=== PATIENT | male | born 1960 | race Caucasian/White ===

== ENCOUNTER 2019-03-23 18:33 | Emergency (ER) | payer MEDICARE, SELFPAY ==
[2019-03-23 18:55] VITALS: BP 133/94; PULSE 87; RESP 18; TEMP 36.4; O2SAT 91
--- NOTE | 2019-03-23 18:57 | DI.RAD.S_ITS ---
PROCEDURE: XR HAND LT MIN 3V INDICATIONS: Laceration from axe TECHNIQUE: 3 views of the hand(s) acquired. COMPARISON: None. FINDINGS: Bones: Fracture involving the lateral base of the second proximal phalange. Carpal bones are normally aligned. No suspicious bony lesions. Soft tissues: No suspicious soft tissue calcifications. IMPRESSION: Second proximal phalange fracture. Dictated by: Audrey Lujan MD, PhD on 03/23/2019 at 19:28 Approved by: Audrey Lujan MD, PhD on 03/23/2019 at 19:29
--- NOTE | 2019-03-23 19:13 | ED.WOUNDLAC ---
HPI - Wound/Laceration <QUE Rucker - Last Filed: 03/23/19 21:07> General Chief Complaint: Wound/Laceration Stated Complaint: LEFT HAND LACERATION Time Seen by Provider: 03/23/19 18:58 Source: patient Mode of arrival: Ambulatory Limitations: no limitations History of Present Illness HPI narrative: This is a 59-year-old gentleman, smoker, who presents to ED with his son with chief complain of left hand lacerations from an sharp ax while he was chopping baumann for killin. Patient reports he accidentally missed a wood and lacerated his left hand and bounced back and lacerated adjacent area. He has to deep laceration on the dorsal aspect of base of 2nd finger extending to 1st and 2nd digit and the meza aspect on the base of thumb. Superficial laceration on dorsal aspect of proximal of left thumb. Right dominant hand, tetanus immunization was updated 2 months ago when he stepped on a nail. Patient denies history of diabetes. Patient reports no tingling or numbness inferior to the injury site. Patient states he is able to move all his fingers without difficulty but with discomfort. Related Data Home Medications Medication Instructions Recorded Confirmed BACLOFEN (#LIORESAL) 10 mg PO BID #0 12/14/10 BUPROPION HCL (BUDEPRION SR OFF 100 mg PO Q DAY #0 12/14/10 MARKET) GABAPENTIN (Gabapentin) 600 mg PO BID #0 12/14/10 [IMITREX] IJ #0 12/14/10 aripiprazole [Abilify] 15 mg PO Q DAY #0 12/14/10 desmopressin [DDAVP] 0.01 mg NS #0 12/14/10 escitalopram oxalate [Lexapro] 20 mg PO Q DAY #0 12/14/10 levothyroxine 150 mcg PO QDAY@0600 #0 12/14/10 rosuvastatin [Crestor] 10 mg PO QDAY #0 12/14/10 topiramate [Topamax] 100 mg PO BID #0 12/14/10 Previous Rx's Medication Instructions Recorded cyclobenzaprine 10 mg PO Q8HP PRN #20 tab 09/21/16 clindamycin HCl 450 mg PO Q8H 7 Days #63 cap 03/23/19 Allergies Allergy/AdvReac Type Severity Reaction Status Date / Time celecoxib [From CELEBREX] Allergy Unknown Verified 03/23/19 19:03 Penicillins [PENICILLINS] Allergy Unknown Verified 03/23/19 19:03 Sulfa (Sulfonamide Allergy Unknown Verified 03/23/19 19:03 Antibiotics) [SULFA (SULFONAMIDE ANTIBIOTICS)] amoxicillin Allergy Verified 03/23/19 19:03 Review of Systems <QUE Rucker - Last Filed: 03/23/19 21:07> Review of Systems Narrative: General: Denies fever, chills, fatigue, malaise, sweats. HEENT: Denies sinus pain, ear pain, sore throat, difficulty swallowing, dizziness. Respiratory: Denies dyspnea, cough, wheezing, hemoptysis, sputum. Cardiovascular: Denies chest pain, palpitations, orthopnea, edema. Gastrointestinal: Denies nausea, vomiting, abdominal pain, diarrhea, constipation, melena. : Denies dysuria, frequency, incontinence, hematuria, urinary retention. Musculoskeletal: Reports discomfort in left hand from a laceration. Denies weakness, tingling or numbness to fingers in left hand Skin: Deep lacerations in left hand. Neurologic: Denies weakness, headache, numbness, change in speech, confusion, seizures, incoordination. Psychiatric: No concerning psychosocial issues. 12-point review of systems is negative except for those stated above. Patient History <QUE Rucker - Last Filed: 03/23/19 21:07> Medical History Difficulty controlling anger (Acute) Head trauma (Acute) Neck pain (Acute) Surgical History History of neck surgery (Acute) Social History Smoking Status: Current every day smoker tobacco type: cigarettes Substance Use Type: does not use Exam <QUE Rucker - Last Filed: 03/23/19 21:07> Narrative Exam Narrative: General appearance: well developed, well nourished, in no acute distress, appears to slightly sleepy. Head: normocephalic, atraumatic, no scalp lesions, non-tender. Eye: pupil equal, round. EOMI. Nose: nares patent. Oral: mucosa moist. Neck/Thyroid: neck supple, full range of motion, no visible masses. Skin: 3 Lacerations on L hand. 5.5cm deep laceration on dorsal aspect of the proximal phalanx extending to the finger web with a thumb; 2cm Deep laceration on volar aspect of 2nd metacarpal; 1 cm laceration on dorsal aspec of thumb Heart: no clubbing, no cyanosis, no edema. Lungs: Breathing even and unlabored. No stridor. No accessory muscles used. Chest: normal shape and expansion. Abdomen: non-obese, non-distended. Neurologic: alert and oriented. Cognitive exam, ALMOND SORTER and PNS grossly intact on informal exam. Psych: good eye contact, normal affect. Initial Vital Signs Initial Vital Signs: Vital Signs Temperature 97.6 F 03/23/19 18:55 Pulse Rate 87 03/23/19 18:55 Respiratory Rate 18 03/23/19 18:55 Blood Pressure 133/94 H 03/23/19 18:55 Pulse Oximetry 91 03/23/19 18:55 Extrem Left upper extremity: hand Details: abnormal to inspection, neuromotor exam normal Details: thumb opposition normal and fingers 2-5 ABduction normal, neurosensory exam normal, tendon exam normal, vascular exam Details: radial pulse present and normal capillary refill, normal ROM of fingers, swelling, laceration and other (see skin assessment for lacerations); no foreign bodies <Karol Pavon MD - Last Filed: 03/24/19 00:20> Initial Vital Signs Initial Vital Signs: Vital Signs Temperature 97.6 F 03/23/19 18:55 Pulse Rate 87 03/23/19 18:55 Respiratory Rate 18 03/23/19 18:55 Blood Pressure 133/94 H 03/23/19 18:55 Pulse Oximetry 91 03/23/19 18:55 Procedures <QUE Rucker - Last Filed: 03/23/19 21:07> Laceration Repair Laceration 1: Site: hand (2nd proximal phalanx) Side (If applicable): left Size (cm): 5.5 Description: linear Depth: simple, single layer Local Anesthetic: lidocaine 1% and with bicarb Amount of anesthesia used (mL): 4.5 Pre-repair: wound explored and irrigated extensively Skin layer closed with: nylon Size (cm): 4-0 Number of sutures: 9 Laceration 2: Site: hand (volar 2nd metacarpal) Side (If applicable): left Size (cm): 2 Description: linear Depth: simple, single layer Local Anesthetic: lidocaine 1% and with bicarb Amount of anesthesia used (mL): 1.5 Pre-repair: wound explored and irrigated extensively Skin layer closed with: nylon Size (cm): 4-0 Number of sutures: 3 Technique: simple, interrupted Laceration 3: Site: hand (dorsal thumb) Side (If applicable): left Size (cm): 1 Description: linear Depth: simple, single layer Local Anesthetic: lidocaine 1% and with bicarb Amount of anesthesia used (mL): 1 Pre-repair: wound explored and irrigated extensively Skin layer closed with: nylon Size (cm): 4-0 Number of sutures: 2 Technique: simple, interrupted Orthopedic Splinting/Casting Injury #1: Side: left Upper Extremity Injury Location: finger Upper Extremity Immobilizer: sling/shoulder immobilizer and aluminum form splint Post splinting neuro exam: intact Post splinting vascular exam: intact Placed by: Nursing Scores <QUE Rucker - Last Filed: 03/23/19 21:07> GCS Win coma scale eye opening: Spontaneous [place] coma scale verbal response: Orientated Win coma scale motor response: Obey commands [place] coma scale total score: 15 Course <ELZBIETA RuckerP - Last Filed: 03/23/19 21:07> Orders Ordered: ED Orders 03/23/19 18:57 XR hand LT min 3V Stat Discontinued Medications Bacitracin (Bacitracin) 2 applic TOP NOW ONE Stop: 03/23/19 19:18 Last Admin: 03/23/19 19:22 Dose: 2 applic Documented by: SARY Clindamycin HCl (Cleocin) 450 mg PO NOW ONE Stop: 03/23/19 20:19 Last Admin: 03/23/19 20:32 Dose: 450 mg Documented by: VILMA Lidocaine/Sodium Bicarbonate (Buffered Lidocaine 10 Ml Syr) 20 ml INJ NOW ONE Stop: 03/23/19 19:18 Last Admin: 03/23/19 19:22 Dose: 20 ml Documented by: SARY Vital Signs Vital signs: Vital Signs - 8 hr 03/23/19 18:55 03/23/19 20:30 Temperature 97.6 F Pulse Rate 87 79 Respiratory Rate 18 18 Blood Pressure 133/94 H Blood Pressure [Right Arm] 136/79 Pulse Oximetry 91 99 <Karol Pavon MD - Last Filed: 03/24/19 00:20> Orders Ordered: ED Orders 03/23/19 18:57 XR hand LT min 3V Stat Discontinued Medications Bacitracin (Bacitracin) 2 applic TOP NOW ONE Stop: 03/23/19 19:18 Last Admin: 03/23/19 19:22 Dose: 2 applic Documented by: SARY Clindamycin HCl (Cleocin) 450 mg PO NOW ONE Stop: 03/23/19 20:19 Last Admin: 03/23/19 20:32 Dose: 450 mg Documented by: VILMA Lidocaine/Sodium Bicarbonate (Buffered Lidocaine 10 Ml Syr) 20 ml INJ NOW ONE Stop: 03/23/19 19:18 Last Admin: 03/23/19 19:22 Dose: 20 ml Documented by: SARY Vital Signs Vital signs: Vital Signs - 8 hr 03/23/19 18:55 03/23/19 20:30 Temperature 97.6 F Pulse Rate 87 79 Respiratory Rate 18 18 Blood Pressure 133/94 H Blood Pressure [Right Arm] 136/79 Pulse Oximetry 91 99 MDM - Wound/Laceration <QUE Rucker - Last Filed: 03/23/19 21:07> Differential Diagnosis Differential diagnosis: Likely laceration and other (Fracture, tendon/ligament injury) Medical Records Attestation: I reviewed the patient's medical records. Imaging Data XR-Hand LT: Radiologist's impression: [address] [address] XRay Report Signed Patient: Musa Lee [facility]#: [id number] : 2Acct:[id number] Age/Sex: 59 / MDate of Service: 03/23/19 Loc: ED Accession Number: [id number] Procedure: XR hand LT min 3V Ordering Provider: Karol Pavon MD PROCEDURE: XR HAND LT MIN 3V INDICATIONS: Laceration from axe TECHNIQUE: 3 views of the hand(s) acquired. COMPARISON: None. FINDINGS: Bones: Fracture involving the lateral base of the second proximal phalange. Carpal bones are normally aligned. No suspicious bony lesions. Soft tissues: No suspicious soft tissue calcifications. IMPRESSION: Second proximal phalange fracture. Dictated by: Audrey Lujan MD, PhD on 03/23/2019 at 19:28 Approved by: Audrey Lujan MD, PhD on 03/23/2019 at 19:29 [facility] Narrative Medical decision making narrative: This is a 59 year old male who presents to ED with 2 deep lacerations and 1 superficial lacerations on left dorsal and volar aspects of proximal and metacarpal of 1st and 2nd digit from an sharp ax accidentally while he was chopping baumann. X-ray showed 2nd proximal phalanx she fracture. Tetanus immunization was updated 2 months ago. Suture has in placed and patient tolerated well. Please see procedure notes. Patient has allergies to amoxicillin and penicillin. Patient was medicated with 1st dose of clindamycin prior discharged to home which patient had taken before without problems. Seven day course antibiotic medication has been prescribed. Wound was dressed by nursing staff and along finger splint has applied on base of 2nd finger. Return precautions were discussed with the patient and a referral to [facility] orthopedist has been provided to follow up. Patient advised to follow up with his PCP for wound recheck and suture removal. Patient verbalized understanding and agrees with treatment plan. Discharge Plan Departure Patient Disposition: Home Clinical Impression: Hand laceration Qualifiers: Encounter type: initial encounter Foreign body presence: without foreign body Laterality: left Qualified Code(s): S61.412A - Laceration without foreign body of left hand, initial encounter Fracture, finger, open Qualifiers: Encounter type: initial encounter Finger: index finger Phalanx: proximal Fracture alignment: nondisplaced Laterality: left Qualified Code(s): S62.641B - Nondisplaced fracture of proximal phalanx of left index finger, initial encounter for open fracture Discharge Date/Time: 03/23/19 20:34 Instructions: DI for Laceration Repair, DI for Open Fracture Activity Restrictions/Additional Instructions: You have been diagnosed with [open fracture on your base of 2nd finger on top of left hand with lacerations]. What to do: *Take your medications as directed. You can take [id number] Tylenol and or Motrin as needed and take care pain medications for severe pain. Please do not get your wound soaked in the water until suture removal. Keep your dressing intact for next 24 hrs. After then, you could remove your dressing, wash with soap and water. Pat dry with clean paper towel and dress it with antibiotic ointment. You can change dressing as needed and daily. Please monitor for signs and symptoms for infection such as increasing redness, swelling, warmth, pain, fever, purulent discharge. If this occurs, please return to ED or follow up with your primary care physician since your wound may be gotten infected. Please follow up with your primary care provider in 2-3 days for recheck wound. Please follow up with [facility] orthopedist for the open finger fracture. I added contact information with this discharge instruction. Your suture should be removed [7] days. This can be done by your primary provider, walk-in clinic or here in ED. Please keep your wound clean, dry and intact all times. Prescriptions: New clindamycin HCl 150 mg capsule 450 mg PO Q8H 7 Days Qty: 63 RF: 0 No Action escitalopram oxalate [Lexapro] 20 MG tablet 20 mg PO Q DAY Qty: 0 RF: 0 aripiprazole [Abilify] 15 MG tablet 15 mg PO Q DAY Qty: 0 RF: 0 rosuvastatin [Crestor] 10 MG tablet 10 mg PO QDAY Qty: 0 RF: 0 BUPROPION HCL (BUDEPRION SR OFF MARKET) 100 mg PO Q DAY Qty: 0 RF: 0 levothyroxine 150 MCG tablet 150 mcg PO QDAY@0600 Qty: 0 RF: 0 topiramate [Topamax] 100 MG tablet 100 mg PO BID Qty: 0 RF: 0 GABAPENTIN (Gabapentin) 600 mg PO BID Qty: 0 RF: 0 BACLOFEN (#LIORESAL) 10 mg PO BID Qty: 0 RF: 0 [IMITREX] IJ Qty: 0 RF: 0 desmopressin [DDAVP] 0.01 % aerosol,spray 0.01 mg NS Qty: 0 RF: 0 cyclobenzaprine 10 MG tablet 10 mg PO Q8HP PRNQty: 20 RF: 0 Referrals: [facility] [Provider Group] Tyshawn Grande MD [Primary Care Provider] -
[2019-03-23] MEDS: LIDO 1%/SOD BICARB 8.4% (10ML) 10 ML SYRINGE 20 ML INJ (19:22)
[2019-03-23] MEDS: BACITRACIN OINT 0.9 GM PCKT 2 APPLIC TOP (19:22)
[2019-03-23 20:30] VITALS: BP 136/79; PULSE 79; RESP 18; O2SAT 99
[2019-03-23] MEDS: CLINDAMYCIN 150 MG CAPSULE 450 MG PO (20:32)
== END 2019-03-23 20:34 | disposition home or self-care (01) ==
PROVIDERS: Emergency Provider Nurse Practitioner Family; PCP Family Medicine
DX: S62.641B Nondisplaced fracture of proximal phalanx of left index finger, initial encounter for open fracture (principal); W27.8XXA Contact with other nonpowered hand tool, initial encounter
CPT/HCPCS: 12004; 29130; 73130; 99283

== ENCOUNTER → 2021-02-16 12:41 | Outpatient (CLI) | payer MEDICARE, SELFPAY ==
[2021-02-16 20:33] LABS: COVID19 - ORCAS (NP or Nasal) Negative (Negative)
== END ==
PROVIDERS: PCP Physician Assistant Medical; Visit Provider Physician Assistant Medical
DX: Z20.822 Contact with and (suspected) exposure to COVID-19 (principal)
CPT/HCPCS: U0003

== ENCOUNTER → 2021-02-17 11:57 | Outpatient (CLI) | payer MEDICARE, SELFPAY ==
[2021-02-19 13:19] LABS: SARS CoV19 IgG Positive (Negative); SARS-CoV19- IgM Positive (Negative)
== END ==
PROVIDERS: PCP Physician Assistant Medical; Visit Provider Physician Assistant Medical
DX: R06.00 Dyspnea, unspecified (principal)
CPT/HCPCS: 86769

== ENCOUNTER → 2021-04-28 11:40 | Outpatient (CLI) | payer MEDICARE, MEDICAID, SELFPAY ==
--- NOTE | 2021-04-28 11:57 | DI.CT.S_ITS ---
PROCEDURE: CT CHEST W CON INDICATIONS: nodule found on xray 02/16/21 TECHNIQUE: After the administration of intravenous contrast, 5 mm thick sections acquired from the pulmonary apices to the posterior costophrenic angles. 1 mm axial lung, 5 mm thick coronal and sagittal reformats and 7 mm axial MIP were acquired. For radiation dose reduction, the following was used: automated exposure control, adjustment of mA and/or kV according to patient size. COMPARISON: [facility] ([place]), CR, XR CHEST 2V, 02/16/2021, 10:10. FINDINGS: Lungs: Scattered scarring/atelectasis. There is ill-defined consolidative opacity measuring 1.9 x 1.1 cm adjacent to the aortic arch in the medial left lower lobe which is technically indeterminate. This could represent scarring or inflammatory change however cannot exclude neoplasm. Additional areas of peripheral subpleural ground-glass and reticular opacities noted in both lung bases which appear less conspicuous since the prior radiograph. Airway thickening in keeping with nonspecific bronchitis and/or reactive airways disease. Pleura: No pleural effusion or pneumothorax. Thyroid gland: Negative Chest nodes: Normal. Heart: Normal in size. No pericardial effusion. Aorta: Normal in size. Pulmonary arteries: Normal. Esophagus: Normal. Upper abdomen and chest wall: Hepatic steatosis Bones: No compression fracture. Diffuse spondylitic changes and facet arthropathy. Cervical spine fixation hardware. IMPRESSION: Ill-defined patchy consolidative focal opacity in the left paramediastinal region, technically indeterminate. Please see discussion above. Cannot exclude neoplasm. Further evaluation could be performed with PET-CT or continued surveillance with three-month interval CT chest. Additional patchy and ground-glass opacities in both lung bases. Resolving pneumonia could have this appearance. These likely correlate to the radiographic appearance from the prior study dated 02/16/21 and demonstrates interval decrease. Dictated by: Howie Peck M.D. on 04/28/2021 at 13:37 Approved by: Howie Peck M.D. on 04/28/2021 at 13:54
== END ==
PROVIDERS: PCP Physician Assistant Medical; Referring Provider Physician Assistant Medical; Visit Provider Physician Assistant Medical
DX: R91.1 Solitary pulmonary nodule (principal); R06.00 Dyspnea, unspecified
CPT/HCPCS: 71260

== ENCOUNTER → 2021-05-03 10:25 | Outpatient (CLI) | payer MEDICARE, SELFPAY | PROVIDERS: PCP Physician Assistant Medical; Referring Provider Physician Assistant Medical; Visit Provider Physician Assistant Medical | DX: G89.21 Chronic pain due to trauma (principal); G89.29 Other chronic pain; M54.41 Lumbago with sciatica, right side; Z79.891 Long term (current) use of opiate analgesic | CPT/HCPCS: 83013 ==

== ENCOUNTER → 2021-06-29 11:00 | Outpatient (CLI) | payer MEDICARE, SELFPAY ==
--- NOTE | 2021-06-29 11:01 | DI.MRI.S_ITS ---
PROCEDURE: MR LUMBAR SPINE WO CON INDICATIONS: chronic lumbar pain TECHNIQUE: Noncontrast sagittal T1 spin echo and T2 fast echo, sagittal STIR, axial T1 and T2 fast spin echo through the lumbar spine. In cases with scoliosis, additional coronal T2 fast spin echo may be performed. COMPARISON: Outside Facility, RG, MRI L-SPINE W/O CONTRAST, 10/13/2016, 16:04. [facility] ([place]), CR, XR LUMBAR SPINE 2-3V, 10/20/2020, 11:06. FINDINGS: Image quality: Excellent. Alignment and Curvature: 5 lumbar type vertebral bodies are present by plain film. There is loss of normal lumbar lordosis. There is mild grade 1 retrolisthesis of L1 on L2, L2 on L3, L3 on L4, and L4 on L5. Bone Marrow: Marrow is of normal overall signal. No acute vertebral body compression fractures. Left-sided interbody fusion hardware at L3-L4 is present. There is moderate reactive signal within the endplates adjacent to the L2-L3 intervertebral disc. Mild reactive signal within the endplates adjacent to the remaining lumbar and lower thoracic intervertebral discs. Spinal Cord: Conus medullaris terminates at the mid L1 level. Visualized cord demonstrates normal signal and size. Paraspinous Soft Tissues: No paravertebral masses. T12-L1: Mild disc height loss and desiccation. Mild diffuse disc bulge. Mild facet and ligamentum flavum hypertrophy. Mild epidural lipomatosis. Mild canal stenosis. Mild bilateral foraminal stenosis. No significant change. L1-L2: Mild disc height loss and desiccation. Mild diffuse disc bulge. Mild facet and ligamentum flavum hypertrophy. Mild epidural lipomatosis. Mild canal stenosis. Mild bilateral foraminal stenosis. No significant change. L2-L3: Moderate disc height loss and desiccation. Interbody device placement. Mild diffuse disc bulge. Mild facet and ligamentum flavum hypertrophy. Mild canal stenosis. Mild bilateral foraminal stenosis. L3-L4: Left lateral fusion hardware. Moderate disc height loss and desiccation. Mild diffuse disc bulge/osteophyte. Mild epidural lipomatosis. Mild facet and ligamentum flavum hypertrophy. Mild canal stenosis. Moderate bilateral foraminal stenosis. No significant change. L4-L5: Moderate disc height loss and desiccation. Mild diffuse disc bulge/osteophyte. Mild facet and ligamentum flavum hypertrophy. Mild epidural lipomatosis. Increased, severe canal stenosis. Severe left greater than right foraminal stenosis is present, as before. Bilateral L4 nerve root compression. L5-S1: Mild disc height loss and desiccation. Mild diffuse disc bulge. Mild bilateral facet hypertrophy. Mild canal stenosis. Mild bilateral foraminal stenosis. No significant change. IMPRESSION: 1. Postsurgical sequelae. 2. Multilevel degenerative disc and facet disease, as well as ligamentum flavum hypertrophy and epidural lipomatosis. 3. Multilevel canal stenoses, worst at L4-L5 where there is severe canal stenosis. 4. Multilevel foraminal stenoses, worst at L4-L5 where there is associated intraforaminal nerve root compression. Recommend correlation with clinical symptoms to ascertain relevance of this finding. Dictated by: Mick Morton M.D. on 06/29/2021 at 13:39 Approved by: Mick Morton M.D. on 06/29/2021 at 13:43
== END ==
PROVIDERS: PCP Physician Assistant Medical; Referring Provider Physician Assistant Medical; Visit Provider Physician Assistant Medical
DX: M51.16 Intervertebral disc disorders with radiculopathy, lumbar region (principal); M51.17 Intervertebral disc disorders with radiculopathy, lumbosacral region; M48.061 Spinal stenosis, lumbar region without neurogenic claudication; M48.07 Spinal stenosis, lumbosacral region; G89.29 Other chronic pain
CPT/HCPCS: 72148

== ENCOUNTER → 2021-07-05 10:51 | Outpatient (CLI) | payer MEDICARE, SELFPAY ==
[2021-07-05 18:43] LABS: Add Manual Diff / Slide Review NO; Basophils Absolute Auto 100 /uL (0-100); Basophils Percent Auto 0.9 % (0-2); Eosinophils Absolute Auto 200 /uL (0-450); Hematocrit 44.6 % (41-53); Hemoglobin 15.2 g/dL (13.5-17.5); Lymphocytes Absolute Auto 1600 /uL (1100-4500); Lymphocytes Percent Auto 20.2 % (25-40); Mean Corpuscular Hemoglobin 31.2 PG (26-34); Monocytes Absolute Auto 500 /uL (0-900); Monocytes Percent Auto 6.2 % (3-14); Neutrophils Absolute Auto 5600 /uL (1500-7000); Neutrophils Percent Auto 69.7 % (50-75); Platelet Count 293 X10^3/uL (150-400); Red Blood Cell Count 4.85 X10^6/uL (4.5-5.9); Red Cell Distribution Width 13.5 % (11.6-14.8); White Blood Cell Count 8.1 X10^3/uL (4.5-11.0)
[2021-07-05 19:10] LABS: Alanine Aminotransferase 28 IU/L (<50); Albumin 3.9 g/dL (3.5-5.0); Albumin Globulin Ratio 1.4 (1.0-2.8); Alkaline Phosphatase 93 U/L (38-126); Aspartate Aminotransferase 24 IU/L (17-59); BUN Creatinine Ratio 9.1 (6-22); Bilirubin Total 0.5 mg/dL (0.2-1.3); Blood Urea Nitrogen 7 mg/dL (9-20); Calcium 9.4 mg/dL (8.4-10.2); Carbon Dioxide 36 mmol/L (22-32); Chloride 99 mmol/L (98-107); Cholesterol 221 mg/dL (140-199); Estimated Glomerular Filt Rate > 60.0 mL/min (>60); Globulin 2.8 g/dL (1.7-4.1); Glucose 120 mg/dL (70-100); HDL Cholesterol 41 mg/dL (40-60); HEMOLYSIS 19 (0-50); LDL Cholesterol Calculated 159 mg/dL (<100); Potassium 4.8 mmol/L (3.4-5.1); Sodium 138 mmol/L (137-145); Total Protein 6.7 g/dL (6.3-8.2); Triglycerides 104 mg/dL (35-150)
[2021-07-05 19:27] LABS: Free T3, Triiodothyronine Free 4.86 pg/mL (2.77-5.27)
[2021-07-05 19:41] LABS: TSH w/ Reflex to FT4 0.29 uIU/mL (0.47-4.68)
[2021-07-05 20:54] LABS: Free T4, Direct Thyroxine 1.11 ng/dL (0.78-2.19)
== END ==
PROVIDERS: PCP Physician Assistant Medical; Visit Provider Physician Assistant Medical
DX: R07.9 Chest pain, unspecified (principal); Z79.891 Long term (current) use of opiate analgesic; M54.40 Lumbago with sciatica, unspecified side; R91.1 Solitary pulmonary nodule; R91.8 Other nonspecific abnormal finding of lung field; G89.29 Other chronic pain
CPT/HCPCS: 80053; 80061; 84439; 84443; 84481; 85025

== ENCOUNTER → 2021-07-13 10:16 | Outpatient (CLI) | payer MEDICARE, SELFPAY ==
[2021-07-13 18:41] LABS: Hemoglobin A1C% w Est Avg Glu 5.9 % (4.0-6.0)
== END ==
PROVIDERS: PCP Physician Assistant Medical; Visit Provider Physician Assistant Medical
DX: R73.9 Hyperglycemia, unspecified (principal)
CPT/HCPCS: 83036

== ENCOUNTER → 2021-11-07 08:03 | Outpatient (CLI) | payer MEDICARE, MEDICAID, SELFPAY ==
[2021-11-07 19:52] LABS: Alanine Aminotransferase 16 IU/L (<50); Albumin 4.1 g/dL (3.5-5.0); Albumin Globulin Ratio 1.6 (1.0-2.8); Alkaline Phosphatase 78 U/L (38-126); Aspartate Aminotransferase 20 IU/L (17-59); BUN Creatinine Ratio 7.6 (6-22); Bilirubin Total 0.3 mg/dL (0.2-1.3); Blood Urea Nitrogen 7 mg/dL (9-20); Calcium 8.8 mg/dL (8.4-10.2); Carbon Dioxide 34 mmol/L (22-32); Chloride 100 mmol/L (98-107); Cholesterol 149 mg/dL (140-199); Estimated Glomerular Filt Rate > 60 mL/min (>60); Globulin 2.6 g/dL (1.7-4.1); Glucose 106 mg/dL (70-100); HDL Cholesterol 40 mg/dL (40-60); HEMOLYSIS < 15 (0-50); LDL Cholesterol Calculated 77 mg/dL (<100); Potassium 4.4 mmol/L (3.4-5.1); Sodium 137 mmol/L (137-145); Total Protein 6.7 g/dL (6.3-8.2); Triglycerides 159 mg/dL (35-150)
[2021-11-07 20:18] LABS: Free T3, Triiodothyronine Free 3.92 pg/mL (2.77-5.27)
[2021-11-07 20:32] LABS: TSH w/ Reflex to FT4 1.99 uIU/mL (0.47-4.68)
== END ==
PROVIDERS: PCP Physician Assistant Medical; Visit Provider Physician Assistant Medical
DX: R07.9 Chest pain, unspecified (principal); Z79.891 Long term (current) use of opiate analgesic; E78.00 Pure hypercholesterolemia, unspecified; I10 Essential (primary) hypertension; R73.9 Hyperglycemia, unspecified
CPT/HCPCS: 80053; 80061; 84443; 84481

== ENCOUNTER → 2022-03-14 11:21 | Outpatient (CLI) | payer MEDICARE, MEDICAID, SELFPAY ==
[2022-03-14 19:49] LABS: Add Manual Diff / Slide Review NO; Basophils Absolute Auto 100 /uL (0-100); Basophils Percent Auto 0.9 % (0-2); Eosinophils Absolute Auto 100 /uL (0-450); Eosinophils Percent Auto 1.6 % (2-4); Hematocrit 42.4 % (41-53); Hemoglobin 14.3 g/dL (13.5-17.5); Lymphocytes Absolute Auto 1600 /uL (1100-4500); Mean Corpuscular HGB Conc 33.8 % (30-36); Mean Corpuscular Hemoglobin 31.4 PG (26-34); Mean Corpuscular Volume 92.9 fL (80-100); Monocytes Absolute Auto 700 /uL (0-900); Monocytes Percent Auto 7.5 % (3-14); Neutrophils Absolute Auto 6400 /uL (1500-7000); Platelet Count 234 X10^3/uL (150-400); Red Blood Cell Count 4.56 X10^6/uL (4.5-5.9); Red Cell Distribution Width 14.4 % (11.6-14.8); White Blood Cell Count 8.9 X10^3/uL (4.5-11.0)
[2022-03-14 20:01] LABS: Alanine Aminotransferase 60 IU/L (<50); Albumin 3.9 g/dL (3.5-5.0); Albumin Globulin Ratio 1.6 (1.0-2.8); Alkaline Phosphatase 140 U/L (38-126); Aspartate Aminotransferase 24 IU/L (17-59); BUN Creatinine Ratio 7.9 (6-22); Bilirubin Total 0.3 mg/dL (0.2-1.3); Blood Urea Nitrogen 6 mg/dL (9-20); Calcium 8.8 mg/dL (8.4-10.2); Carbon Dioxide 32 mmol/L (22-32); Chloride 100 mmol/L (98-107); Cholesterol 137 mg/dL (140-199); Estimated Glomerular Filt Rate > 60 mL/min (>60); Globulin 2.5 g/dL (1.7-4.1); Glucose 120 mg/dL (70-100); HDL Cholesterol 42 mg/dL (40-60); HEMOLYSIS < 15 (0-50); Hemoglobin A1C% w Est Avg Glu 5.7 % (4.0-6.0); LDL Cholesterol Calculated 72 mg/dL (<100); Potassium 4.5 mmol/L (3.4-5.1); Sodium 137 mmol/L (137-145); Total Protein 6.4 g/dL (6.3-8.2); Triglycerides 116 mg/dL (35-150)
[2022-03-14 20:24] LABS: TSH w/ Reflex to FT4 0.46 uIU/mL (0.47-4.68)
[2022-03-14 20:59] LABS: Free T4, Direct Thyroxine 1.04 ng/dL (0.78-2.19)
== END ==
PROVIDERS: PCP Physician Assistant Medical; Visit Provider Physician Assistant Medical
DX: Z79.891 Long term (current) use of opiate analgesic (principal); M54.40 Lumbago with sciatica, unspecified side; R07.9 Chest pain, unspecified; E78.00 Pure hypercholesterolemia, unspecified; I10 Essential (primary) hypertension; R03.0 Elevated blood-pressure reading, without diagnosis of hypertension; R73.9 Hyperglycemia, unspecified; G89.29 Other chronic pain
CPT/HCPCS: 80053; 80061; 83036; 84439; 84443; 85025

== ENCOUNTER → 2022-07-02 12:22 | Outpatient (CLI) | payer MEDICARE, MEDICAID, SELFPAY ==
--- NOTE | 2022-07-02 12:24 | DI.MRI.S_ITS ---
PROCEDURE: MR LUMBAR SPINE WO CON INDICATIONS: increasing sciatica TECHNIQUE: Noncontrast sagittal T1 spin echo and T2 fast echo, sagittal STIR, and T2 fast spin echo through the lumbar spine. In cases with scoliosis, additional coronal T2 fast spin echo may be performed. COMPARISON: [facility], MR, MR LUMBAR SPINE WO CON, 06/29/2021, 11:07. FINDINGS: Image quality: Excellent. Alignment and Curvature: Minimal retrolisthesis of L1 on L2, L2 on L3, L3 on L4 and L4 on L5. Interbody fusion hardware is present at L3-4, unchanged. Bone Marrow: Marrow is of normal overall signal. No acute vertebral body compression fractures. Spinal Cord: Conus medullaris terminates at the L1 level. Visualized cord demonstrates normal signal and size. Paraspinous Soft Tissues: No paravertebral masses. Discs: Ujxj-ho-gijvfegy desiccation is present. L1-L2: Mild disc bulge with mild spinal stenosis. Mild bilateral foraminal narrowing, left greater than right with facet and ligamentum flavum hypertrophy. Epidural lipomatosis is present. No interval change. L2-L3: Mild disc bulge with mild spinal stenosis. Mild bilateral foraminal narrowing with facet and ligamentum flavum hypertrophy. No interval change. L3-L4: Mild disc bulge with moderate spinal stenosis, slightly progressive compared to prior exam. Moderate bilateral foraminal narrowing with facet and ligamentum flavum hypertrophy. Minimal epidural lipomatosis. L4-L5: Mild disc bulge with severe spinal stenosis. Severe bilateral foraminal narrowing, left greater than right with slight compression of the exiting L4 nerve roots bilaterally, left greater than right. No interval change. Facet and ligamentum flavum hypertrophy are present. L5-S1: Mild disc bulge with mild spinal stenosis. Mild bilateral foraminal narrowing with facet and ligamentum flavum hypertrophy. No interval change. IMPRESSION: Stable appearance of postsurgical change. Stable multilevel spinal stenosis remaining most severe at L4-5 secondary to disc bulge with contributing effect of facet/ligamentum flavum arthropathy as well as epidural lipomatosis. Multilevel foraminal narrowing remaining most severe at L4-5 secondary to facet and ligamentum flavum arthropathy. Dictated by: Neelam Dailey M.D. on 07/02/2022 at 15:40 Approved by: Neelam Dailey M.D. on 07/02/2022 at 15:47
== END ==
PROVIDERS: PCP Physician Assistant Medical; Referring Provider Physician Assistant Medical; Visit Provider Physician Assistant Medical
DX: M48.061 Spinal stenosis, lumbar region without neurogenic claudication (principal); M51.16 Intervertebral disc disorders with radiculopathy, lumbar region; M47.26 Other spondylosis with radiculopathy, lumbar region; G89.29 Other chronic pain
CPT/HCPCS: 72148

== ENCOUNTER → 2022-09-12 10:12 | Outpatient (CLI) | payer MEDICARE, MEDICAID, SELFPAY ==
[2022-09-12 19:32] LABS: Add Manual Diff / Slide Review NO; Basophils Absolute Auto 0 /uL (0-100); Basophils Percent Auto 0.5 % (0-2); Eosinophils Absolute Auto 100 /uL (0-450); Eosinophils Percent Auto 1.3 % (2-4); Hematocrit 44.1 % (41-53); Hemoglobin 15.1 g/dL (13.5-17.5); Lymphocytes Absolute Auto 1800 /uL (1100-4500); Lymphocytes Percent Auto 20.6 % (25-40); Mean Corpuscular HGB Conc 34.4 % (30-36); Mean Corpuscular Hemoglobin 31.7 PG (26-34); Mean Corpuscular Volume 92.2 fL (80-100); Monocytes Absolute Auto 600 /uL (0-900); Monocytes Percent Auto 6.7 % (3-14); Neutrophils Absolute Auto 6300 /uL (1500-7000); Neutrophils Percent Auto 70.9 % (50-75); Platelet Count 265 X10^3/uL (150-400); Red Blood Cell Count 4.78 X10^6/uL (4.5-5.9); Red Cell Distribution Width 13.4 % (11.6-14.8); White Blood Cell Count 8.8 X10^3/uL (4.5-11.0)
[2022-09-12 19:39] LABS: Alanine Aminotransferase 19 IU/L (<50); Albumin Globulin Ratio 1.5 (1.0-2.8); Alkaline Phosphatase 76 U/L (38-126); Aspartate Aminotransferase 19 IU/L (17-59); BUN Creatinine Ratio 9.3 (6-22); Bilirubin Total 0.4 mg/dL (0.2-1.3); Blood Urea Nitrogen 7 mg/dL (9-20); C-Reactive Protein Quant 1.1 mg/dL (<1.0); Calcium 8.9 mg/dL (8.4-10.2); Carbon Dioxide 33 mmol/L (22-32); Chloride 100 mmol/L (98-107); Estimated Glomerular Filt Rate > 60 mL/min (>60); Globulin 2.6 g/dL (1.7-4.1); Glucose 107 mg/dL (80-110); HEMOLYSIS < 15 (0-50); Potassium 4.1 mmol/L (3.4-5.1); Sodium 137 mmol/L (137-145); Total Protein 6.6 g/dL (6.3-8.2)
[2022-09-12 19:40] LABS: Rheumatoid Factor < 8.6 IU/mL (<12.0)
[2022-09-12 19:53] LABS: Erythrocyte Sedimentation Rate 6 MM/HR (0-15)
[2022-09-12 20:08] LABS: TSH w/ Reflex to FT4 0.74 uIU/mL (0.47-4.68)
[2022-09-18 18:24] LABS: ANA Screen, IFA Negative (.)
== END ==
PROVIDERS: PCP Physician Assistant Medical; Visit Provider Physician Assistant Medical
DX: Z79.891 Long term (current) use of opiate analgesic (principal); M54.40 Lumbago with sciatica, unspecified side; M25.50 Pain in unspecified joint; R91.1 Solitary pulmonary nodule; R73.9 Hyperglycemia, unspecified; M54.2 Cervicalgia; F17.200 Nicotine dependence, unspecified, uncomplicated
CPT/HCPCS: 80053; 84443; 85025; 85651; 86038; 86140; 86430

== ENCOUNTER → 2023-01-29 11:56 | Outpatient (CLI) | payer MEDICARE, MEDICAID, SELFPAY ==
--- NOTE | 2023-01-29 12:14 | DI.CT.S_ITS ---
PROCEDURE: CT CHEST WO CON INDICATIONS: follow up 2020 TECHNIQUE: Noncontrast 5 mm thick sections acquired from the pulmonary apices to the posterior costophrenic angles. 1 mm lung window, 5 mm thick coronal and sagittal and 7 mm axial MIP reformats were then acquired. For radiation dose reduction, the following was used: automated exposure control, adjustment of mA and/or kV according to patient size. COMPARISON: [facility], CT, CT CHEST W CON, 04/28/2021, 12:07. FINDINGS: Image quality: Excellent. Lungs and pleura: Bilateral patchy areas of chronic interstitial change reflects postinflammatory scarring, min remains entirely unchanged from the prior exam, including small focus adjacent to the aortic arch. Subpleural inflammatory nodules measure up to 3-4 mm as noted on image 3/116 in the right upper lobe and superior segment both lower lobes, left upper lobe lingula image 3/129 and 158, left lower lobe 3/172. Right lower lobe image 3/239. All these nodules are stable from the prior. Mediastinum: Heart size is normal. No pericardial effusion. No mediastinal adenopathy by size criteria. Thoracic aorta and central pulmonary arteries are normal in size. Esophagus is normal in caliber. No hiatal hernia. Bones and chest wall: No suspicious bony lesions. No vertebral body compression fractures. No axillary or supraclavicular adenopathy by size criteria. Thyroid gland unremarkable . Abdomen: Visualized upper abdominal solid organs and bowel loops appear normal in the absence of contrast. IMPRESSION: 1. Multifocal areas of chronic interstitial change and postinflammatory scarring as well as bilateral postinflammatory small 3 - 4 mm nodules all remain unchanged from the prior exam. Consider additional 1 year follow-up Approved by: Franyd Morales M.D. on 01/29/2023 at 17:51
== END ==
PROVIDERS: PCP Physician Assistant Medical; Referring Provider Physician Assistant Medical; Visit Provider Physician Assistant Medical
DX: R91.8 Other nonspecific abnormal finding of lung field (principal); J98.4 Other disorders of lung
CPT/HCPCS: 71250

== ENCOUNTER → 2023-04-25 10:13 | Outpatient (CLI) | payer MEDICARE, MEDICAID, SELFPAY ==
--- NOTE | 2023-04-25 10:14 | DI.MRI.S_ITS ---
PROCEDURE: MR CERVICAL SPINE WO CON INDICATIONS: upper extremity numbness/previous surgery TECHNIQUE: Noncontrast sagittal T1 spin echo and T2 fast spin echo, sagittal STIR, foraminal oblique sagittal T2 fast spin echo, and axial gradient echo or T2 fast spin echo through the cervical spine. COMPARISON: [facility] ([place]), CR, XR CERVICAL SPINE 2V OR 3V, 01/02/2023, 11:53. [facility], MR, C-SPINE WITHOUT CONTRAST, 08/11/2013, 15:00. FINDINGS: Image quality: Excellent. Alignment and Curvature: There is normal bony alignment. Bone Marrow: Marrow demonstrates normal overall signal. Spinal Cord: A 3 mm focal area of encephalomalacia in the cord at C5-6 is seen. Visualized spinal cord has normal size and signal. No cerebellar tonsillar herniation. Paraspinous Soft Tissues: No paravertebral masses. Prevertebral soft tissues are normal in thickness. C2-C3: Diffuse disc bulge causes mild right and moderate left foraminal stenosis. The central canal has moderate stenosis. The foramina are patent. C3-C4: Disc osteophytes and uncovertebral hypertrophy cause mild right and severe left foraminal stenosis. The central canal is patent. C4-C5: Disc osteophytes and uncovertebral hypertrophy cause severe right and moderate left foraminal stenosis. The central canal is patent. C5-C6: Disc osteophytes and uncovertebral hypertrophy cause severe bilateral foraminal stenosis. The central canal is patent. C6-C7: Disc osteophytes and uncovertebral hypertrophy cause severe bilateral foraminal stenosis. The central canal is patent. C7-T1: Diffuse disc bulge asymmetric to the right. Disc osteophytes and uncovertebral hypertrophy cause moderate bilateral foraminal stenosis. The central canal has moderate stenosis. IMPRESSION: 1. Postoperative changes of ACDF from C3 through C7. 2. The foramina at the fused levels demonstrate multilevel stenosis due to uncovertebral hypertrophy. 3. Moderate central canal stenosis at C2-3 and C7-T1. 4. 3 mm focus of encephalomalacia in the left cord at C5-6. Dictated by: Joey Parisi M.D. on 04/25/2023 at 11:43 Approved by: Joey Parisi M.D. on 04/25/2023 at 11:58
== END ==
PROVIDERS: PCP Physician Assistant Medical; Referring Provider Physician Assistant Medical; Visit Provider Physician Assistant Medical
DX: M47.12 Other spondylosis with myelopathy, cervical region (principal); M48.02 Spinal stenosis, cervical region; Z98.1 Arthrodesis status
CPT/HCPCS: 72141

== ENCOUNTER → 2024-03-09 09:51 | Outpatient (CLI) | payer MEDICARE, SELFPAY ==
[2024-03-09 19:41] LABS: Hematocrit 40.4 % (41-53); Mean Corpuscular HGB Conc 34.7 % (30-36); Mean Corpuscular Hemoglobin 32.5 PG (26-34); Mean Corpuscular Volume 93.7 fL (80-100); Platelet Count 303 X10^3/uL (150-400); Red Blood Cell Count 4.31 X10^6/uL (4.5-5.9); Red Cell Distribution Width 13.7 % (11.6-14.8); White Blood Cell Count 8.7 X10^3/uL (4.5-11.0)
[2024-03-09 19:50] LABS: Cholesterol 131 mg/dL (140-199); HDL Cholesterol 49 mg/dL (40-60); LDL Cholesterol Calculated 71 mg/dL (<100); Triglycerides 54 mg/dL (35-150)
[2024-03-09 20:16] LABS: TSH w/ Reflex to FT4 0.88 uIU/mL (0.47-4.68)
[2024-03-09 20:21] LABS: Prostate Specific Antigen 1.52 ng/mL (0.10-4.00)
== END ==
PROVIDERS: PCP Physician Assistant Medical; Visit Provider Physician Assistant Medical
DX: J44.9 Chronic obstructive pulmonary disease, unspecified (principal); R79.89 Other specified abnormal findings of blood chemistry; E78.00 Pure hypercholesterolemia, unspecified; M47.12 Other spondylosis with myelopathy, cervical region; R73.9 Hyperglycemia, unspecified; E03.9 Hypothyroidism, unspecified
CPT/HCPCS: 80061; 84153; 84443; 85027

== ENCOUNTER → 2024-04-29 12:40 | Outpatient (CLI) | payer MEDICARE, SELFPAY ==
--- NOTE | 2024-04-29 14:01 | DI.MRI.S_ITS ---
PROCEDURE: MR HAND RT WO CON INDICATIONS: Ongoing right middle finger pain since January 2024 TECHNIQUE: Noncontrast coronal T1 spin echo and T2 fast spin echo with fat saturation, axial proton density fast spin echo and T2 fast spin echo with fat saturation, sagittal T1 spin echo and STIR through the hand and fingers. COMPARISON: [facility], CR, XR HAND 3+ VIEWS RIGHT, 04/15/2024, 13:11. [facility] ([place]), CR, XR HAND RT MIN 3V, 03/24/2024, 12:42. [facility] ([place]), CR, XR HAND RT MIN 3V, 03/05/2024, 11:26. FINDINGS: Image quality: Excellent. Bones: The marrow signal is within normal limits. There is no acute fracture or dislocation. Joints: There is mild developing 3rd MCP, PIP, and DIP joint osteoarthritis (9/19; 6/7). There is a small joint effusion at the 3rd PIP joint (/). There is mild triscaphe osteoarthritis. Muscles: Overall muscle bulk is preserved without evidence of denervation. Ligaments: Corresponding to the heterotopic ossification along the radial aspect of the 3rd PIP joint, there is a subacute-chronic appearing full-thickness tear of the radial proper collateral ligament at that joint, with a corresponding avulsion at the proximal phalangeal attachment site. Otherwise, the visualized accessory and proper collateral ligaments are within normal limits. Tendons: The visualized flexor and extensor tendons are within normal limits. There is no bowstringing of the flexor tendon units. Nerves: The visualized median and ulnar nerves are normal in signal and caliber. IMPRESSION: 1. Subacute-chronic full-thickness avulsion of the radial probable collateral ligament at the 3rd PIP joint, with corresponding heterotopic ossification, a small joint effusion, and mild osteoarthritis. 2. Mild 3rd MCP and DIP joint osteoarthritis. 3. Mild triscaphe osteoarthritis. Dictated by: Maik Coronado M.D. on 04/29/2024 at 15:55 Approved by: Maik Coronado M.D. on 04/29/2024 at 16:09
== END ==
PROVIDERS: Family Provider Physician Assistant Medical; PCP Physician Assistant Medical; Referring Provider Physician Assistant Surgical; Visit Provider Physician Assistant Surgical
DX: S63.632A Sprain of interphalangeal joint of right middle finger, initial encounter (principal); M19.041 Primary osteoarthritis, right hand; M19.031 Primary osteoarthritis, right wrist; M25.441 Effusion, right hand; M79.644 Pain in right finger(s); M25.20 Flail joint, unspecified joint
CPT/HCPCS: 73218

== ENCOUNTER → 2024-06-04 11:30 | Outpatient (CLI) | payer MEDICARE, MEDICAID, SELFPAY | PROVIDERS: Family Provider Physician Assistant Medical; PCP Physician Assistant Medical; Referring Provider Physician Assistant Medical; Visit Provider Physician Assistant Medical | DX: M54.9 Dorsalgia, unspecified (principal); M47.12 Other spondylosis with myelopathy, cervical region; M54.2 Cervicalgia; Z98.890 Other specified postprocedural states; R29.890 Loss of height; R20.0 Anesthesia of skin; S69.92XA Unspecified injury of left wrist, hand and finger(s), initial encounter; R20.2 Paresthesia of skin; S69.91XA Unspecified injury of right wrist, hand and finger(s), initial encounter; R94.131 Abnormal electromyogram [EMG] | CPT/HCPCS: 95886; 95910 ==

== ENCOUNTER → 2024-07-10 09:35 | Outpatient (CLI) | payer MEDICARE, SELFPAY ==
--- NOTE | 2024-07-10 09:38 | DI.NM.S_ITS ---
PROCEDURE: NM BONE SCAN WHOLE BODY RADIOPHARMACEUTICAL: 21.3 mCi Tc-99m MDP IV. INDICATIONS: increasing pain without explanation TECHNIQUE: Delayed whole-body scintigrams were obtained approximately 3-4 hours after intravenous injection of radiotracer. Anterior and posterior views were acquired from vertex to feet. Additional oblique views of the pelvis were obtained. . COMPARISON: [facility] ([place]), CR, XR HIP W PEL IF DONE RT 2V, 06/12/2024, 14:21. FINDINGS: Evaluation of the pelvis limited by activity in the urinary bladder. No suspicious abnormal osseous radiotracer uptake within limitations of the study. No areas of osseous photopenia within limitations of the study. No abnormal soft tissue uptake. Activity in the kidneys is normal and symmetric. IMPRESSION: Negative examination. Dictated by: Audrey Lujan MD, PhD on 07/10/2024 at 15:26 Approved by: Audrey Lujan MD, PhD on 07/10/2024 at 15:28
--- NOTE | 2024-07-10 09:38 | DI.CT.S_ITS ---
PROCEDURE: CT CHEST WO CON INDICATIONS: Abnormal CT TECHNIQUE: Noncontrast 2.0-2.5 mm thick sections acquired from the pulmonary apices to the posterior costophrenic angles. 7 mm thick axial MIP and 5 mm coronal and sagittal reformats were then acquired. For radiation dose reduction, the following was used: automated exposure control, adjustment of mA and/or kV according to patient size. COMPARISON: [facility], CT, CT CHEST WO CON, 01/29/2023, 12:13. FINDINGS: Image quality: Diagnostic. Lower Neck: No enlarged lymph nodes. Thyroid: No thyroid nodules which require sonographic follow up, per consensus guidelines. Axillae: No enlarged lymph nodes. Chest Wall: Unremarkable. Bones: Unremarkable. Lungs and Pleura: No pneumothorax or pleural effusions. Subpleural nodules are again noted. No significant interval change. No acute infiltrates. No suspicious masses. Heart: Heart size is normal. No pericardial effusion. Minimal coronary artery calcifications. Thoracic Vessels: The aorta and pulmonary arteries demonstrate normal size. Mediastinum and Kimberly: No enlarged lymph nodes. Esophagus: No wall thickening. No hiatal hernia. Upper Abdomen: Visualized upper abdomen solid organs and bowel loops appear normal. IMPRESSION: Stable chest. No acute cardiopulmonary process. Dictated by: Odette Schultz M.D. on 07/10/2024 at 10:37 Approved by: Odette Schultz M.D. on 07/10/2024 at 10:46
== END ==
LOC: CT 09:36
PROVIDERS: Family Provider Physician Assistant Medical; PCP Physician Assistant Medical; Referring Provider Physician Assistant Medical; Visit Provider Physician Assistant Medical
DX: M89.9 Disorder of bone, unspecified (principal); R91.8 Other nonspecific abnormal finding of lung field; F17.200 Nicotine dependence, unspecified, uncomplicated; R63.4 Abnormal weight loss
CPT/HCPCS: 71250; 78306; A9503

== ENCOUNTER → 2024-11-04 10:48 | Outpatient (CLI) | payer MEDICARE, SELFPAY ==
[2024-11-04 18:51] LABS: Add Manual Diff / Slide Review NO; Basophils Absolute Auto 0 /uL (0-100); Basophils Percent Auto 0.5 % (0-2); Eosinophils Absolute Auto 100 /uL (0-450); Eosinophils Percent Auto 1.4 % (2-4); Hematocrit 40.1 % (41-53); Hemoglobin 13.7 g/dL (13.5-17.5); Lymphocytes Absolute Auto 1800 /uL (1100-4500); Lymphocytes Percent Auto 22.2 % (25-40); Mean Corpuscular HGB Conc 34.2 % (30-36); Mean Corpuscular Hemoglobin 32.3 PG (26-34); Mean Corpuscular Volume 94.4 fL (80-100); Monocytes Absolute Auto 600 /uL (0-900); Neutrophils Absolute Auto 5300 /uL (1500-7000); Neutrophils Percent Auto 67.9 % (50-75); Platelet Count 215 X10^3/uL (150-400); Red Blood Cell Count 4.24 X10^6/uL (4.5-5.9); Red Cell Distribution Width 13.5 % (11.6-14.8); White Blood Cell Count 7.9 X10^3/uL (4.5-11.0)
[2024-11-04 18:56] LABS: Alanine Aminotransferase 18 IU/L (<50); Albumin Globulin Ratio 1.8 (1.0-2.8); Alkaline Phosphatase 61 U/L (38-126); Aspartate Aminotransferase 27 IU/L (17-59); BUN Creatinine Ratio 12.8 (6-22); Bilirubin Total 0.5 mg/dL (0.2-1.3); Blood Urea Nitrogen 11 mg/dL (9-20); Calcium 8.9 mg/dL (8.4-10.2); Carbon Dioxide 31 mmol/L (22-32); Chloride 101 mmol/L (98-107); Estimated Glomerular Filt Rate > 60 mL/min (>60); Globulin 2.2 g/dL (1.7-4.1); Glucose 99 mg/dL (70-99); HEMOLYSIS 17 (0-50); Potassium 4.4 mmol/L (3.4-5.1); Sodium 137 mmol/L (137-145); Total Protein 6.2 g/dL (6.3-8.2)
[2024-11-04 19:23] LABS: TSH w/ Reflex to FT4 0.61 uIU/mL (0.47-4.68)
== END ==
PROVIDERS: PCP Physician Assistant Medical; Visit Provider Physician Assistant Medical
DX: R63.4 Abnormal weight loss (principal); M89.9 Disorder of bone, unspecified; F17.200 Nicotine dependence, unspecified, uncomplicated; E03.9 Hypothyroidism, unspecified; R73.9 Hyperglycemia, unspecified; I10 Essential (primary) hypertension
CPT/HCPCS: 80053; 84443; 85025

== ENCOUNTER → 2024-12-23 14:52 | Outpatient (CLI) | payer MEDICARE, SELFPAY ==
--- NOTE | 2024-12-23 14:52 | DI.MRI.S_ITS ---
PROCEDURE: MR CERVICAL SPINE WO CON INDICATIONS: referral to neuro surg for possible surgery TECHNIQUE: Noncontrast sagittal T1 spin echo and T2 fast spin echo, sagittal STIR, foraminal oblique sagittal T2 fast spin echo, and axial gradient echo or T2 fast spin echo through the cervical spine. COMPARISON: [facility], MR, MR CERVICAL SPINE WO CON, 04/25/2023, 10:18. FINDINGS: Image quality: There is artifact associated with the metallic hardware. This examination is limited by involuntary motion artifact. Alignment and Curvature: There is overall straightening of the normal cervical lordosis. No focal AP alignment abnormality is seen. Bone Marrow: Marrow demonstrates normal overall signal. Spinal Cord: Visualized spinal cord has normal size and signal. No cerebellar tonsillar herniation. Paraspinous Soft Tissues: No paravertebral masses. Prevertebral soft tissues are normal in thickness. Extensive postoperative change can be seen, with anterior fixation hardware C3 through C7. Disc spacers are seen throughout the fused region. C2-C3: Moderate loss of disc height is seen. Loss of disc signal is seen. Moderate generalized disc osteophyte complex is seen. There is a superimposed central disc osteophyte protrusion. Moderate facet joint hypertrophy is seen. There is at least moderate bilateral neural foraminal narrowing. Moderate central canal narrowing is seen. There is associated mass effect upon the ventral spinal cord. When comparison is made with the prior images, these findings are similar. C3-C4: Moderate generalized disc osteophyte complex is seen. There is a central/right disc osteophyte protrusion. There is at least moderate right-sided and moderate to severe left-sided neural foraminal narrowing. Moderate central canal narrowing is seen. There is a minimal degree of mass effect upon the ventral spinal cord. No significant change from the prior. C4-C5: Moderate disc osteophyte complex is seen, which is eccentric to the right. Moderate facet joint hypertrophy is seen. There is moderate to severe right- sided and at least moderate left-sided neural foraminal narrowing. Mild to moderate central canal narrowing is seen, with minimal mass effect upon the ventral spinal cord. When comparison is made with the prior images, these findings are similar. C5-C6: Moderate generalized disc osteophyte complex is seen. Mild to moderate facet hypertrophy is seen. At least moderate bilateral neural foraminal narrowing can be seen. Moderate central canal narrowing is seen. No significant change from the prior. C6-C7: Moderate generalized disc osteophyte complex is seen. Mild facet joint hypertrophy is seen. At least moderate bilateral neural foraminal narrowing can be seen. Mild central canal narrowing is seen. When comparison is made with the prior images, these findings are similar. C7-T1: At least moderate loss of disc height and disc signal can be seen. Moderate generalized disc osteophyte complex is seen. There is a superimposed central disc osteophyte protrusion. Moderate facet joint hypertrophy is seen. There is moderate right-sided and at least moderate left-sided neural foraminal narrowing. No significant change from the prior. IMPRESSION: Anterior fixation hardware can be seen C3 through C7. Extensive degenerative changes are seen, which are similar to the 2022 images. Dictated by: Simeon Ball M.D. on 12/23/2024 at 15:29 Approved by: Simeon Ball M.D. on 12/23/2024 at 15:35
== END ==
LOC: MRI 14:52
PROVIDERS: PCP Physician Assistant Medical; Referring Provider Physician Assistant Medical; Visit Provider Physician Assistant Medical
DX: M47.12 Other spondylosis with myelopathy, cervical region (principal); R20.0 Anesthesia of skin; Z98.1 Arthrodesis status; M25.78 Osteophyte, vertebrae; M50.21 Other cervical disc displacement, high cervical region; M48.02 Spinal stenosis, cervical region
CPT/HCPCS: 72141

== ENCOUNTER → 2025-03-01 12:37 | Outpatient (CLI) | payer MEDICARE, MEDICAID, SELFPAY ==
--- NOTE | 2025-03-01 | DI.CT.S_ITS ---
PROCEDURE: CT KNEE LEFT WITHOUT CON INDICATIONS: pain TECHNIQUE: Noncontrast 1-1.5 mm axial sections acquired from the mid-patella to the proximal tibia, with coronal and sagittal reformats. COMPARISON: [facility] ([place]), CR, XR KNEE LT 3V, 02/15/2025, 10:41. FINDINGS: Image quality: Excellent. Bones: Medial femoral condyle weight-bearing portion subchondral line in and subchondral bone plate contour abnormality measuring approximately 2.1 x 1.5 centimeter. Additional lateral femoral condyle subchondral line without bone plate contour abnormality measuring approximately 1.0 by 0.8 centimeter. Tricompartmental marginal osteophytes. Joint space narrowing in the medial compartment. Osteochondral step-off at the posterior aspect of the lateral tibial plateau.. Intra-articular body in the intercondylar area measuring 6 millimeters. Soft tissues: Effusion. No soft tissue mass or swelling. IMPRESSION: Moderate osteoarthritis. Age-indeterminate subchondral fractures of the mediolateral femoral condyles versus a vascular necrosis. Step-off in the lateral tibial condyle posteriorly which may represent an age-indeterminate fracture. Dictated by: Jordan Pineda M.D. on 03/03/2025 at 10:01 Approved by: Jordan Pineda M.D. on 03/03/2025 at 10:04
== END ==
PROVIDERS: PCP Physician Assistant Medical; Referring Provider Physician Assistant Medical; Visit Provider Physician Assistant Medical
DX: M17.12 Unilateral primary osteoarthritis, left knee (principal); M25.562 Pain in left knee
CPT/HCPCS: 73700

== ENCOUNTER → 2025-04-29 12:01 | Outpatient (CLI) | payer MEDICARE, SELFPAY | PROVIDERS: PCP Physician Assistant Medical; Visit Provider Physician Assistant Medical | DX: J02.9 Acute pharyngitis, unspecified (principal) | CPT/HCPCS: 87070 ==

== ENCOUNTER → 2025-05-04 10:53 | Outpatient (CLI) | payer MEDICARE, SELFPAY ==
--- NOTE | 2025-05-04 10:54 | DI.MRI.S_ITS ---
PROCEDURE: MR KNEE LT WO CON INDICATIONS: Pain in left knee TECHNIQUE: Noncontrast sagittal PD fast spin echo and T2 fast spin echo with fat saturation, sagittal 3-D FLASH with fat saturation; coronal T1 spin echo and PD fast spin echo with fat saturation, and axial PD fast spin echo with fat saturation through the knee. COMPARISON: [facility] ([place]), CR, XR KNEE LT 3V, 02/15/2025, 10:41. [facility], CT, CT KNEE LEFT WITHOUT CON, 03/01/2025, 12:48. FINDINGS: Image quality: Excellent. Menisci: Peripheral displacement of medial meniscus bowing medial collateral ligament is seen with suggestion of subtle oblique tear involving posterior horn of medial meniscus extending to inferior articulating surface. The lateral meniscus is intact. Cruciate ligaments: The anterior and posterior cruciate ligaments appear intact. Medial structures: The medial collateral ligament appears thickened with mild adjacent soft tissue edema. Visualized portions of the pes anserinus tendons appear normal. No abnormal bursal fluid. Lateral structures: The lateral collateral ligament, long and short heads of the biceps femoris tendon appear intact. The popliteus tendon appears intact. Iliotibial band appears normal. Anterior structures: Distal quadriceps tendinosis at its superior patellar insertion. The patellar tendon is intact. Patellar alignment is normal. Bones and cartilage: There is no acute acute fracture or dislocation. Previous CT finding of subtle cortical step of involving lateral tibial condyle posteriorly is again seen with mild edema and overlying cartilage defect suggestive of tiny focal osteochondral injury in this area. [id number] tricompartmental osteoarthritis and chondromalacia is seen more notably in medial femoral tibial compartment with focal area of full-thickness cartilage defect and underlying osteochondral injury involving weight-bearing portion of medial femoral condyle. No other area of abnormal marrow signal. Joint space: There is moderate knee joint fluid. No Green's cyst. Normal appearing synovial plicae are incidentally noted. IMPRESSION: 1. [id number] tricompartmental osteoarthritis and chondromalacia of more notably in medial femoral tibial compartment. Focal areas of small osteochondral injuries involving weight-bearing portion of medial femoral condyle and posterior aspect of lateral tibial plateau. No acute fracture or dislocation. No suspicious bony lesions. 2. Moderate joint effusion, no loose bodies. 3. Oblique tear involving posterior horn of medial meniscus extending to inferior articulating surface. No lateral meniscal tear. 4. Low-grade MCL sprain. 5. Distal quadriceps tendinosis. Dictated by: Dann Grossman M.D. on 05/04/2025 at 12:25 Approved by: Dann Grossman M.D. on 05/04/2025 at 12:33
== END ==
PROVIDERS: PCP Physician Assistant Medical; Referring Provider Physician Assistant Medical; Visit Provider Physician Assistant Medical
DX: S83.242A Other tear of medial meniscus, current injury, left knee, initial encounter (principal); S83.412A Sprain of medial collateral ligament of left knee, initial encounter; M23.92 Unspecified internal derangement of left knee; M25.562 Pain in left knee; M17.12 Unilateral primary osteoarthritis, left knee; M94.262 Chondromalacia, left knee; M25.462 Effusion, left knee
CPT/HCPCS: 73721